=== PATIENT | female | born 1935 | race Caucasian/White ===

== ENCOUNTER 2016-10-21 18:27 | Emergency (ER) | payer MEDICARE ==
[~2016-10-21] VITALS: Ht 162.6 cm; Wt 70.0 kg
[~2016-10-21 18:27] MED LIST: ASPI325T4 PO; BISA10SU2 PR; DIPH25CA61 PO; DOCU-30 PO; FLUT1DIS3 INH; GABA100C8 PO; MAG355OR14 PO; MAGN400O4 PO; ONDA4TAB10 PO; PROM25AM6 IM; SCOP1PAT TD; SENN-31 PO; TRAM-28 PO; TRAM50TA2 PO; ZOLP-413 PO
[2016-10-21 19:35] VITALS: BP 149/93
== END 2016-10-21 21:14 | disposition home or self-care (01) ==
LOC: ED 21:05
DX: S76.011A Strain of muscle, fascia and tendon of right hip, initial encounter (principal); X58.XXXA Exposure to other specified factors, initial encounter; Y93.89 Activity, other specified; Y92.89 Other specified places as the place of occurrence of the external cause; Y99.9 Unspecified external cause status
CPT/HCPCS: 99284

== ENCOUNTER 2016-10-24 10:08 | Inpatient (IN) | payer MEDICARE ==
[~2016-10-24] VITALS: Ht 162.6 cm; Wt 67.8 kg
[2016-10-24] MEDS ORDERED: ONDANSETRON 2MG/ML, 2ML IVPush ONE (11:00)
[2016-10-24] MEDS ORDERED: SODIUM CHLORIDE FLUSH 10ML SYR IVF ONE (11:00)
[2016-10-24] MEDS ORDERED: SODIUM CHLORIDE 0.9% 1,000ML IVBOLUS ONE (11:00)
[2016-10-24] MEDS ORDERED: MORPHINE SULFATE 4 MG/ML, 1ML IVPush PRN ×2 (11:00→13:30)
[2016-10-24 11:25] LABS: ASPARTATE AMINO TRANSFERASE 24 U/L (15-37)
[2016-10-24 11:46] LABS: BLOOD UREA NITROGEN 31 mg/dL (7-18)
[2016-10-24 12:17] LABS: ICTOTEST NEGATIVE
[2016-10-24] MEDS ORDERED: ACETAMINOPHEN 500 MG TABLET ONE (12:53)
[2016-10-24] MEDS ORDERED: CEFTRIAXONE PMX 1GM/50ML 50 ML IV ONE (13:00)
[2016-10-24] MEDS ORDERED: CEFTRIAXONE PMX 1GM/50ML 50 ML ONE (13:12)
[2016-10-24] MEDS ORDERED: ACETAMINOPHEN 325 MG TABLET ONE (13:14)
[2016-10-24] MEDS ORDERED: CEFTRIAXONE PMX 2GM/50ML 50 ML ONE (13:14)
[2016-10-24] MEDS: CEFTRIAXONE PMX 2GM/50ML 50 ML IV SCH (13:21)
[2016-10-24] MEDS: ACETAMINOPHEN 325 MG TABLET PO PRN (13:21)
[2016-10-24] MEDS ORDERED: hydrALAzine 20 MG/ML, 1ML IV PRN (13:30)
[2016-10-24] MEDS ORDERED: POLYETHYLENE GLYCOL 17 GM PACKET PO PRN (13:30)
[2016-10-24] MEDS ORDERED: ONDANSETRON 2MG/ML, 2ML IVP PRN (13:30)
[2016-10-24] MEDS ORDERED: DOCUSATE 100 MG CAPSULE PO PRN (13:30)
[2016-10-24 14:57] VITALS: BP 104/56
[2016-10-24] MEDS: HYDROcodone/APAP 5/325 TABLET PO PRN (16:23)
[2016-10-24] MEDS: ENOXAPARIN 30 MG/0.3 ML SQ SCH ×2 (16:25→16:26)
[2016-10-24] MEDS: SODIUM CHLORIDE 0.9% 1,000 ML IV SCH (16:25)
[2016-10-24 19:22] VITALS: BP 110/70
[2016-10-25 01:57] VITALS: BP 151/86
[2016-10-25] MEDS: SODIUM CHLORIDE 0.9% 1,000 ML IV SCH ×2 (02:33→20:12)
[2016-10-25] MEDS: ACETAMINOPHEN 325 MG TABLET PO PRN (02:33)
[2016-10-25] MEDS ORDERED: PHARMACOKINETIC CONSULTATION MC ONE (04:00)
[2016-10-25] MEDS ORDERED: PHARMACOKINETIC MONITORING MC PRN (04:00)
[2016-10-25] MEDS ORDERED: VANCOMYCIN 1,400 MG in SODIUM CHLORIDE 0.9% 250 ML IV SCH (04:00)
[2016-10-25] MEDS ORDERED: VANCOMYCIN PER PHARMACY MC PRN (04:00)
[2016-10-25 06:03] LABS: ASPARTATE AMINO TRANSFERASE 19 U/L (15-37); BLOOD UREA NITROGEN 27 mg/dL (7-18)
[2016-10-25 07:06] VITALS: BP 123/71
[2016-10-25] MEDS: FLUTICASONE/VILANTEROL 100-25MCG/INH INH SCH (08:45)
[2016-10-25] MEDS ORDERED: FLUTICASONE INH SCH (09:00)
[2016-10-25] MEDS ORDERED: SALMETEROL INH SCH (09:00)
[2016-10-25] MEDS: HYDROcodone/APAP 5/325 TABLET PO PRN ×2 (10:42→20:21)
[2016-10-25 12:56] VITALS: BP 108/66
[2016-10-25] MEDS ORDERED: CEFTRIAXONE PMX 2GM/50ML 50 ML IV SCH (13:30)
[2016-10-25] MEDS: CEFTRIAXONE PMX 2GM/50ML 50 ML IV SCH (13:36)
[2016-10-25] MEDS: AZITHROMYCIN 500 MG in SODIUM CHLORIDE 0.9% 250 ML IV SCH (15:55)
[2016-10-25] MEDS ORDERED: ENOXAPARIN 40 MG/0.4 ML SQ SCH (16:00)
[2016-10-25 18:47] VITALS: BP 117/74
[2016-10-26 00:27] VITALS: BP 91/63
[2016-10-26 05:44] LABS: BLOOD UREA NITROGEN 26 mg/dL (7-18)
[2016-10-26] MEDS: SODIUM CHLORIDE 0.9%, 500ML IVBOLUS ONE (07:30)
[2016-10-26 07:38] VITALS: BP 131/82
[2016-10-26] MEDS ORDERED: VANCOMYCIN 1,400 MG in SODIUM CHLORIDE 0.9% 250 ML IV ONE (09:00)
[2016-10-26] MEDS: HYDROcodone/APAP 5/325 TABLET PO PRN ×3 (09:16→20:41)
[2016-10-26] MEDS: FLUTICASONE/VILANTEROL 100-25MCG/INH INH SCH (09:16)
[2016-10-26 09:35] VITALS: BP 96/49
[2016-10-26] MEDS ORDERED: MAGNESIUM SULFATE PMX 2GM/50ML 50 ML IV ONE (10:30)
[2016-10-26] MEDS ORDERED: DILTIAZEM 5 MG/ML, 5ML IVPush ONE (10:30)
[2016-10-26] MEDS ORDERED: HEPARIN 5,000 UNITS/ML, 1ML IV ONE (10:30)
[2016-10-26] MEDS ORDERED: DIGOXIN 0.25 MG/ML, 2ML IVPush ONE (10:30)
[2016-10-26] MEDS: HEPARIN 25,000 UNITS/500ML PMX 500 ML IV PRN (12:17)
[2016-10-26 15:08] VITALS: BP 114/74
[2016-10-26] MEDS: CEFTRIAXONE PMX 2GM/50ML 50 ML IV SCH (15:31)
[2016-10-26] MEDS: AZITHROMYCIN 500 MG in SODIUM CHLORIDE 0.9% 250 ML IV SCH (16:16)
[2016-10-26 19:41] VITALS: BP 107/63
[2016-10-26] MEDS ORDERED: OMNIPAQUE 350 MG/ML, 100ML BOTTLE ONE (20:00)
[2016-10-26] MEDS: HEPARIN 5,000 UNITS/ML, 1ML IV PRN (20:41)
[2016-10-27] MEDS: HYDROcodone/APAP 5/325 TABLET PO PRN ×5 (01:47→21:32)
[2016-10-27 02:27] VITALS: BP 136/83
[2016-10-27 03:37] LABS: BLOOD UREA NITROGEN 21 mg/dL (7-18)
[2016-10-27 03:44] LABS: C-REACTIVE PROTEIN, QUANT > 19.00 mg/dL (0.02-0.49)
[2016-10-27] MEDS ORDERED: VANCOMYCIN 1,400 MG in SODIUM CHLORIDE 0.9% 250 ML IV SCH (04:00)
[2016-10-27] MEDS: HEPARIN 5,000 UNITS/ML, 1ML IV PRN ×3 (04:30→19:03)
[2016-10-27] MEDS: SODIUM CHLORIDE 0.9% 1,000 ML IV SCH ×2 (04:32→23:13)
[2016-10-27 07:39] VITALS: BP 101/68
[2016-10-27] MEDS ORDERED: METOPROLOL TARTRATE 25 MG TABLET PO SCH (08:00)
[2016-10-27] MEDS: FLUTICASONE/VILANTEROL 100-25MCG/INH INH SCH (09:13)
[2016-10-27] MEDS ORDERED: ALBUTEROL SULFATE 2.5 MG/3 ML ONE (09:13)
[2016-10-27] MEDS: ALBUTEROL SULFATE 2.5 MG/3 ML NPPB PRN (09:16)
[2016-10-27 10:57] VITALS: BP 115/76
[2016-10-27 13:25] VITALS: BP 121/81
[2016-10-27] MEDS: METOPROLOL TARTRATE 25 MG TABLET PO SCH ×2 (15:33→23:13)
[2016-10-27] MEDS ORDERED: LORazepam 2 MG/ML, 1ML IVPush ONE (16:00)
[2016-10-27] MEDS ORDERED: LIDOCAINE 1%, 20ML ONE (16:15)
[2016-10-27] MEDS: HEPARIN 25,000 UNITS/500ML PMX 500 ML IV PRN (17:39)
[2016-10-27] MEDS: CEFAZOLIN PMX 2GM/100ML 100 ML IV SCH ×2 (17:42→23:13)
[2016-10-27 19:06] VITALS: BP 103/69
[2016-10-27 23:13] VITALS: BP 104/67
[2016-10-28 01:06] VITALS: BP 117/80
[2016-10-28] MEDS: HEPARIN 5,000 UNITS/ML, 1ML IV PRN ×2 (01:28→12:42)
[2016-10-28] MEDS: HYDROcodone/APAP 5/325 TABLET PO PRN ×2 (01:33→09:58)
[2016-10-28 06:30] LABS: ASPARTATE AMINO TRANSFERASE 32 U/L (15-37); BLOOD UREA NITROGEN 13 mg/dL (7-18)
[2016-10-28 07:39] VITALS: BP 143/92
[2016-10-28] MEDS ORDERED: POTASSIUM CHLORIDE 20 MEQ TAB.ER.PRT PO ONE (08:00)
[2016-10-28] MEDS: METOPROLOL TARTRATE 50 MG TABLET PO SCH ×2 (08:00→15:42)
[2016-10-28] MEDS: CEFAZOLIN PMX 2GM/100ML 100 ML IV SCH ×2 (08:07→15:42)
[2016-10-28] MEDS: FLUTICASONE/VILANTEROL 100-25MCG/INH INH SCH (08:08)
[2016-10-28] MEDS ORDERED: LORazepam 2 MG/ML, 1ML ONE (08:50)
[2016-10-28] MEDS ORDERED: SODIUM CHLORIDE 0.9% 1,000 ML IV SCH (09:00)
[2016-10-28 10:03] VITALS: BP 138/80
[2016-10-28] MEDS ORDERED: GADOBUTROL 7.5 MMOL/7.5 ML PFS ONE (11:32)
[2016-10-28] MEDS: HEPARIN 25,000 UNITS/500ML PMX 500 ML IV PRN (12:50)
[2016-10-28 13:21] VITALS: BP 119/80
[2016-10-28 15:41] VITALS: BP 113/81
[2016-10-28] MEDS ORDERED: DIGOXIN 0.25 MG/ML, 2ML IVPush ONE (17:30)
[2016-10-28 20:00] VITALS: BP 131/77
[2016-10-28] MEDS ORDERED: DIGOXIN 0.25 MG/ML, 2ML ONE (22:44)
[2016-10-28] MEDS: ALBUTEROL SULFATE 2.5 MG/3 ML NPPB PRN (23:54)
[2016-10-29 00:01] VITALS: BP 185/95
[2016-10-29] MEDS: METOPROLOL TARTRATE 50 MG TABLET PO SCH (00:17)
[2016-10-29] MEDS ORDERED: FUROSEMIDE 40 MG/4 ML ONE (00:25)
[2016-10-29] MEDS ORDERED: FUROSEMIDE 40 MG/4 ML IV ONE (00:30)
[2016-10-29] MEDS ORDERED: POTASSIUM CHLORIDE 20 MEQ TAB.ER.PRT PO ONE (00:30)
[2016-10-29] MEDS ORDERED: DILTIAZEM 5 MG/ML, 5ML ONE (00:40)
[2016-10-29 00:48] LABS: BLOOD UREA NITROGEN 11 mg/dL (7-18)
[2016-10-29] MEDS: CEFAZOLIN PMX 2GM/100ML 100 ML IV SCH (00:55)
[2016-10-29 00:57] LABS: IS PT STATUS REG ER OR PRE ER? NO
[2016-10-29 01:27] VITALS: BP 128/73
[2016-10-29] MEDS ORDERED: DILTIAZEM IV PRN (01:30)
[2016-10-29] MEDS ORDERED: DILTIAZEM 125 MG in SODIUM CHLORIDE 0.9% 100 ML IV PRN (01:30)
[2016-10-29] MEDS ORDERED: SODIUM CHLORIDE 0.9% IV PRN (01:30)
[2016-10-29] MEDS: ALBUTEROL SULFATE 2.5 MG/3 ML NPPB PRN (01:40)
[2016-10-29] MEDS: HYDROcodone/APAP 5/325 TABLET PO PRN ×3 (01:56→23:08)
[2016-10-29 05:34] LABS: ASPARTATE AMINO TRANSFERASE 35 U/L (15-37); BLOOD UREA NITROGEN 11 mg/dL (7-18)
[2016-10-29] MEDS: HEPARIN 25,000 UNITS/500ML PMX 500 ML IV PRN ×2 (05:45→21:59)
[2016-10-29 07:13] VITALS: BP 128/72
[2016-10-29] MEDS ORDERED: SODIUM CHLORIDE 0.9% 1,000 ML IV SCH (09:00)
[2016-10-29 10:08] VITALS: BP 110/71
[2016-10-29] MEDS: DILTIAZEM 60 MG TABLET PO SCH ×4 (10:10→20:23)
[2016-10-29] MEDS: FLUTICASONE/VILANTEROL 100-25MCG/INH INH SCH (10:10)
[2016-10-29] MEDS ORDERED: SODIUM BICARBONATE 4.2%, 5ML ONE (10:43)
[2016-10-29] MEDS ORDERED: LIDOCAINE 2%, 20ML ONE (10:43)
[2016-10-29] MEDS ORDERED: LIDOCAINE 1%, 20ML ONE (10:44)
[2016-10-29 11:01] LABS: IS PT STATUS REG ER OR PRE ER? NO
[2016-10-29 12:47] LABS: IS PT STATUS REG ER OR PRE ER? NO
[2016-10-29 13:14] VITALS: BP 98/60
[2016-10-29] MEDS: CEFAZOLIN PMX 2GM/50ML 50 ML IV SCH ×2 (15:13→23:49)
[2016-10-29 19:55] VITALS: BP 99/59
[2016-10-30 02:24] VITALS: BP 109/72
[2016-10-30 05:23] LABS: BLOOD UREA NITROGEN 10 mg/dL (7-18)
[2016-10-30 05:40] LABS: IS PT STATUS REG ER OR PRE ER? NO
[2016-10-30 05:45] LABS: ASPARTATE AMINO TRANSFERASE 49 U/L (15-37)
[2016-10-30] MEDS: DILTIAZEM 60 MG TABLET PO SCH ×4 (06:08→20:00)
[2016-10-30 06:36] VITALS: BP 138/72
[2016-10-30] MEDS ORDERED: LIDOCAINE 1%, 20ML ONE (07:14)
[2016-10-30] MEDS ORDERED: SODIUM BICARBONATE 4.2%, 5ML ONE (07:14)
[2016-10-30] MEDS: CEFAZOLIN PMX 2GM/50ML 50 ML IV SCH ×3 (08:28→22:17)
[2016-10-30] MEDS: FLUTICASONE/VILANTEROL 100-25MCG/INH INH SCH (08:28)
[2016-10-30] MEDS: HYDROcodone/APAP 5/325 TABLET PO PRN ×2 (08:40→20:00)
[2016-10-30] MEDS: ADVAIR INH SCH (11:18)
[2016-10-30 11:36] VITALS: BP 117/71
[2016-10-30 12:24] VITALS: BP 101/61
[2016-10-30 15:58] VITALS: BP 113/72
[2016-10-30] MEDS: APIXABAN 5 MG TABLET PO SCH (18:08)
[2016-10-30] MEDS: ALBUTEROL SULFATE 2.5 MG/3 ML NPPB PRN (18:11)
[2016-10-30 19:50] VITALS: BP 106/64
[2016-10-31] MEDS: ALBUTEROL SULFATE 2.5 MG/3 ML NPPB PRN ×2 (01:35→13:52)
[2016-10-31 02:17] VITALS: BP 138/82
[2016-10-31] MEDS: HYDROcodone/APAP 5/325 TABLET PO PRN ×3 (04:37→23:10)
[2016-10-31] MEDS: DILTIAZEM 60 MG TABLET PO SCH ×2 (04:37→11:00)
[2016-10-31 06:38] VITALS: BP 110/70
[2016-10-31] MEDS: FLUTICASONE/VILANTEROL 100-25MCG/INH INH SCH (08:22)
[2016-10-31] MEDS: APIXABAN 5 MG TABLET PO SCH ×2 (08:25→21:08)
[2016-10-31] MEDS: ADVAIR INH SCH (08:25)
[2016-10-31] MEDS: CEFAZOLIN PMX 2GM/50ML 50 ML IV SCH ×3 (08:25→23:13)
[2016-10-31] MEDS ORDERED: [UNRECOGNIZED DRUG - OTHER] INH SCH (09:00)
[2016-10-31 12:45] VITALS: BP 146/78
[2016-10-31] MEDS: DILTIAZEM 240 MG CAP.ER.24H PO SCH (13:44)
[2016-10-31 20:02] VITALS: BP 108/64
[2016-10-31] MEDS: ALBUTEROL SULFATE 2.5 MG/3 ML NPPB SCH (20:27)
[2016-11-01 02:21] VITALS: BP 129/66
[2016-11-01] MEDS: ALBUTEROL SULFATE 2.5 MG/3 ML NPPB SCH ×3 (04:43→19:25)
[2016-11-01 05:36] LABS: BLOOD UREA NITROGEN 6 mg/dL (7-18)
[2016-11-01 05:40] LABS: ASPARTATE AMINO TRANSFERASE 51 U/L (15-37)
[2016-11-01 06:31] VITALS: BP 144/77
[2016-11-01] MEDS: FLUTICASONE/VILANTEROL 100-25MCG/INH INH SCH (08:26)
[2016-11-01] MEDS: DILTIAZEM 240 MG CAP.ER.24H PO SCH (08:26)
[2016-11-01] MEDS: ADVAIR INH SCH (08:26)
[2016-11-01] MEDS: APIXABAN 5 MG TABLET PO SCH ×2 (08:26→19:58)
[2016-11-01] MEDS: CEFAZOLIN PMX 2GM/50ML 50 ML IV SCH ×3 (08:26→22:50)
[2016-11-01 12:45] VITALS: BP 142/76
[2016-11-01 20:00] VITALS: BP 129/73
[2016-11-01] MEDS: HYDROcodone/APAP 5/325 TABLET PO PRN (22:47)
[2016-11-02 02:00] VITALS: BP 136/69
[2016-11-02 04:09] LABS: BLOOD UREA NITROGEN 6 mg/dL (7-18)
[2016-11-02 04:12] LABS: ASPARTATE AMINO TRANSFERASE 48 U/L (15-37)
[2016-11-02] MEDS: CEFAZOLIN PMX 2GM/50ML 50 ML IV SCH (07:21)
[2016-11-02] MEDS: ADVAIR INH SCH (07:21)
[2016-11-02] MEDS: FLUTICASONE/VILANTEROL 100-25MCG/INH INH SCH ×2 (07:21→07:25)
[2016-11-02] MEDS: APIXABAN 5 MG TABLET PO SCH (07:22)
[2016-11-02] MEDS: DILTIAZEM 240 MG CAP.ER.24H PO SCH (07:22)
[2016-11-02 08:04] VITALS: BP 128/74
[2016-11-02] MEDS: ALBUTEROL SULFATE 2.5 MG/3 ML NPPB SCH (09:20)
[2016-11-02] MEDS ORDERED: APIX5TAB PO (10:35)
[2016-11-02] MEDS ORDERED: POLY17PO5 PO (10:35)
[2016-11-02] MEDS ORDERED: DILT240C55 PO (10:35)
== END 2016-11-02 15:15 | DRG 559 ==
LOC: ED 12:36 → EDIP 12:37 → ED 12:42 → 3NE 13:41 → 5SO 10-26 10:57
PROVIDERS: ADMIT Hospitalist; ATTEND Hospitalist
PROC: 0T9B70Z Drainage of Bladder with Drainage Device, Via Natural or Artificial Opening (ICD-10-PCS; 2016-10-24)
PROC: 0S993ZX Drainage of Right Hip Joint, Percutaneous Approach, Diagnostic (ICD-10-PCS; principal; 2016-10-30)
PROC: 02HV33Z Insertion of Infusion Device into Superior Vena Cava, Percutaneous Approach (ICD-10-PCS; 2016-11-01)
PROC: B5181ZA Fluoroscopy of Superior Vena Cava using Low Osmolar Contrast, Guidance (ICD-10-PCS; 2016-11-01)
DX: T84.51XA Infection and inflammatory reaction due to internal right hip prosthesis, initial encounter (principal); A41.01 Sepsis due to Methicillin susceptible Staphylococcus aureus; J96.01 Acute respiratory failure with hypoxia; E43 Unspecified severe protein-calorie malnutrition; N17.0 Acute kidney failure with tubular necrosis; E87.1 Hypo-osmolality and hyponatremia; I50.30 Unspecified diastolic (congestive) heart failure; N12 Tubulo-interstitial nephritis, not specified as acute or chronic; D68.69 Other thrombophilia; T84.84XA Pain due to internal orthopedic prosthetic devices, implants and grafts, initial encounter; E86.9 Volume depletion, unspecified; J45.909 Unspecified asthma, uncomplicated; M19.90 Unspecified osteoarthritis, unspecified site; I48.91 Unspecified atrial fibrillation; K80.20 Calculus of gallbladder without cholecystitis without obstruction; D64.9 Anemia, unspecified; K57.90 Diverticulosis of intestine, part unspecified, without perforation or abscess without bleeding; Z96.641 Presence of right artificial hip joint; Z60.2 Problems related to living alone; I27.2 Other secondary pulmonary hypertension; F41.9 Anxiety disorder, unspecified; K44.9 Diaphragmatic hernia without obstruction or gangrene; M16.12 Unilateral primary osteoarthritis, left hip; Z88.2 Allergy status to sulfonamides; Z68.28 Body mass index [BMI] 28.0-28.9, adult; Z82.3 Family history of stroke; Z87.891 Personal history of nicotine dependence; Z87.440 Personal history of urinary (tract) infections; Z79.01 Long term (current) use of anticoagulants
CPT/HCPCS: 36415; 36569; 71010; 71275; 72197; 74022; 74176; 76937; 77001; 77002; 80048; 80053; 80202; 81001; 83605; 83690; 83735; 83880; 84145; 84484; 85014; 85018; 85025; 85520; 85610; 85651; 85810; 86140; 87040; 87070; 87075; 87077; 87086; 87102; 87116; 87147; 87186; 87205; 87206; 87324; 89050; 89060; 93005; 93306; 94640; 96360; A9585; J0456; J0690; J0696; J1644; J1650; J1940; J3370; J3490; J7613; Q9967; C1751; J1160; J2060; J3475; J7030; J7040; J7050

== ENCOUNTER 2017-02-06 14:26 | Emergency (ER) | payer MEDICARE ==
[~2017-02-06] VITALS: Ht 152.4 cm; Wt 67.0 kg
[~2017-02-06 14:26] MED LIST changes: +APIX5TAB PO; +DILT240C55 PO; +GABA-826 PO; -GABA100C8 PO; +POLY17PO5 PO
[2017-02-06 14:29] VITALS: BP 130/71
== END 2017-02-06 16:15 | disposition home or self-care (01) ==
LOC: ED 16:09
DX: Z76.0 Encounter for issue of repeat prescription (principal); I10 Essential (primary) hypertension
CPT/HCPCS: 99283

== ENCOUNTER 2018-02-02 17:56 | Emergency (ER) | payer MEDICARE ==
[~2018-02-02] VITALS: Ht 162.6 cm; Wt 70.0 kg
[~2018-02-02 17:56] MED LIST changes: +ASPI325T17 PO; -ASPI325T4 PO; +DOCU-131 PO; -DOCU-30 PO; -MAGN400O4 PO; +MAGN400O7 PO; -SCOP1PAT TD; +SCOP1PAT11 TD; -TRAM-28 PO; +TRAM-47 PO
[2018-02-02] MEDS ORDERED: MECLIZINE CHEWABLE 25 MG TAB ONE (18:44)
[2018-02-02 18:50] VITALS: BP 169/90
[2018-02-02] MEDS ORDERED: MECLIZINE CHEWABLE 25 MG TAB PO ONE (19:00)
[2018-02-02 19:10] LABS: BASOPHILS # (AUTO) 0.03 x10^3/uL (0-0.1); BASOPHILS % (AUTO) 0 % (0-1); EOSINOPHILS # (AUTO) 0.07 x10^3/uL (0-0.4); EOSINOPHILS % (AUTO) 1 % (1-7); LYMPHOCYTES # (AUTO) 0.94 x10^3/uL (1-3.4); LYMPHOCYTES % (AUTO) 13 % (22-44); MD NO; MEAN CORPUSCULAR HEMOGLOBIN 31.2 pg (27.0-34.8); MEAN CORPUSCULAR HGB CONC 32.7 g/dL (32.4-35.8); MEAN CORPUSCULAR VOLUME 95.3 fL (80-100); MEAN PLATELET VOLUME 8.6 fL (7.4-10.4); MONOCYTES # (AUTO) 0.36 x10^3/uL (0.2-0.8); MONOCYTES % (AUTO) 5 % (2-9); NEUTROPHILS % (AUTO) 80 % (42-75); PLATELET COUNT 245 x10^3/uL (130-400); RED BLOOD COUNT 4.85 x10^6/uL (3.82-5.3); RED CELL DISTRIBUTION WIDTH 15.6 % (9.6-15.2)
[2018-02-02 19:21] LABS: ALBUMIN 3.8 g/dL (3.4-5.0); ANION GAP 7 mmol/L (5-15); CALCIUM 8.5 mg/dL (8.5-10.1); CHLORIDE 108 mmol/L (98-107); CREATININE 0.77 mg/dL (0.55-1.02)
[2018-02-02 19:26] LABS: TROPONIN I < 0.015 ng/mL (0.000-0.045)
== END 2018-02-02 20:35 | disposition home or self-care (01) ==
LOC: ED 20:10
DX: R42 Dizziness and giddiness (principal); J18.9 Pneumonia, unspecified organism; I10 Essential (primary) hypertension; Z96.649 Presence of unspecified artificial hip joint; Z88.2 Allergy status to sulfonamides
CPT/HCPCS: 36415; 71045; 80048; 82040; 83735; 83880; 84484; 85025; 93005; 99285

== ENCOUNTER 2020-06-23 20:13 | Emergency (ER) | payer MEDICARE ==
[~2020-06-23] VITALS: Ht 167.6 cm; Wt 66.0 kg
[~2020-06-23 20:13] MED LIST changes: -BISA10SU2 PR; +BISA10SU4 PR
[2020-06-23 20:19] VITALS: BP 156/88
== END 2020-06-23 20:35 | disposition home or self-care (01) ==
LOC: ED 20:25
DX: J45.909 Unspecified asthma, uncomplicated (principal); I10 Essential (primary) hypertension; Z76.0 Encounter for issue of repeat prescription
CPT/HCPCS: 99281